=== PATIENT | male | born 1955 | race Caucasian/White ===

== ENCOUNTER → 2017-05-24 09:48 | Outpatient (CLI) | payer MEDICARE, SELFPAY ==
--- NOTE | 2017-05-24 | XR_ITS ---
XR ankle LT min 3V HISTORY: Follow-up arthrodesis ITS.REASON: LT ANKLE ARTHRODOSIS ORDERING PHYSICIAN: Elza Garber DPM PATIENT AGE: 61 years COMPARISON: 02/13/2017 FINDINGS: Status post fusion of the ankle joint. [address] as before stabilizing the tibial talar joint with persistent good alignment. Severe osteoarthritic changes are present at the ankle joint. Postsurgical changes noted at the distal tib-fib as before. There remains anterior angulation of the distal fibula with multiple screw holes within the distal tibia and fibula. IMPRESSION: No change status post fusion of the ankle joint with old distal tib-fib fracture and severe osteoarthritis of the ankle
== END ==
PROVIDERS: PCP Podiatrist; Visit Provider Podiatrist
DX: Z98.890 Other specified postprocedural states (principal)
CPT/HCPCS: 73610

== ENCOUNTER → 2017-12-03 08:18 | Outpatient (CLI) | payer MEDICARE, SELFPAY ==
--- NOTE | 2017-12-03 08:18 | XR_ITS ---
XR . Wt bearing LT min 3V HISTORY: Previous fusion procedure ITS.REASON: post op views ORDERING PHYSICIAN: Elza Garber DPM PATIENT AGE: 62 years Comparison: 02/13/2017 FINDINGS: Again noted on the 3 threaded screws traversing the fibula tibia and talus unchanged in alignment and appearance from the previous study 02/13/2017. There are old healed fractures of the distal fibula and distal tibia. IMPRESSION: Status post fusion of the ankle joint findings basely unchanged the previous study no acute bony pathology identified
== END ==
PROVIDERS: Visit Provider Podiatrist
DX: M19.172 Post-traumatic osteoarthritis, left ankle and foot (principal); Z98.890 Other specified postprocedural states
CPT/HCPCS: 73610